=== PATIENT | male | born 1975 | race Caucasian/White ===

== ENCOUNTER 2025-01-27 14:11 | Emergency (ER) | payer OTHER ==
[~2025-01-27] VITALS: Ht 195.6 cm; Wt 98.8 kg
[2025-01-27 18:48] VITALS: BP 143/87; TEMP 97.7; O2SAT 99
== END 2025-01-27 19:18 | disposition left against medical advice (07) ==
LOC: M ED 14:11
DX: Z53.21 Procedure and treatment not carried out due to patient leaving prior to being seen by health care provider (principal)